=== PATIENT | female | born 1985 | race Caucasian/White ===

== ENCOUNTER 2021-09-05 17:34 | Emergency (ER) | payer BC ==
--- NOTE | 2021-09-05 19:33 | EDM.PDOC ---
ED HPI GENERAL MEDICAL PROBLEM - General Chief Complaint: Lower Extremity Injury/Pain Stated Complaint: TOE INJURY Time Seen by Provider: 09/05/21 18:46 Source of Information: Reports: Patient History Limitations: Reports: No Limitations - History of Present Illness INITIAL COMMENTS - FREE TEXT/NARRATIVE: Patient is a 36-year-old female who injured her right second toe getting out of the bathtub earlier this morning. Patient has been having pain with swelling and ecchymosis of the toe since. She denies any other injuries has not previously injured this foot has no other complaints. She has taken nothing for current symptoms and feels she needs to walk on her heel. Onset: Today Location: Reports: Lower Extremity, Right Quality: Reports: Ache, Throbbing Severity: Moderate Improves with: Reports: Rest Context: Reports: Trauma Associated Symptoms: Reports: No Other Symptoms right foot Pain Score (Numeric/FACES): 5 - Related Data Allergies Allergy/AdvReac Type Severity Reaction Status Date / Time acetaminophen [From Vicodin] Allergy Anaphylactic Verified 09/05/21 18:22 Shock hydrocodone [From Vicodin] Allergy Anaphylactic Verified 09/05/21 18:22 Shock Home Meds: Home Meds Multivit 45/Iron/Folate 6/Dha [Prenate Dha Softgel] 1 tab PO DAILY 09/05/21 [History] Past Medical History - Past Health History Medical/Surgical History: Denies Medical/Surgical History - Infectious Disease History Infectious Disease History: Reports: Novel Coronavirus Other Infectious Disease History: January 2020 Social & Family History - Tobacco Use Tobacco Use Status *Q: Never Tobacco User - Recreational Drug Use Recreational Drug Use: No Review of Systems - Review of Systems Review Of Systems: Comprehensive ROS is negative, except as noted in HPI. Musculoskeletal: Reports: Foot Pain Skin: Reports: Bruising ED EXAM, GENERAL - Physical Exam Exam: See Below Exam Limited By: No Limitations General Appearance: Alert, No Apparent Distress Head: Normocephalic Neck: Normal Inspection Respiratory/Chest: No Respiratory Distress GI/Abdominal: No Distention Extremities: Other (Ecchymosis with swelling on right second toe. The rest of the foot is nontender and normal appearing.) Neurological: Alert, Oriented Psychiatric: Normal Affect Skin Exam: Warm, Dry Course - Vital Signs Text/Narrative:: X-ray of patient's right foot shows no sign of fracture. She is refusing crutches at this point. She wants no pain medicines. She is asking for cast shoe which will attempt to give her. Why she will wear a heavy sock with an open toe sandal. Last Recorded V/S: Last Vital Signs Temp 98.1 F 09/05/21 18:20 Pulse 57 L 09/05/21 18:20 Resp 18 09/05/21 18:20 BP 136/85 09/05/21 18:20 Pulse Ox 99 09/05/21 18:20 - Orders/Labs/Meds Orders: Active Orders 24 hr Category Date Time Status Foot Comp Min 3V Rt [CR] Stat Exams 09/05/21 18:19 Taken Departure - Departure Time of Disposition: 19:35 Disposition: Home, Self-Care 01 Condition: Good Clinical Impression: Contusion of toe of right foot - Discharge Information Instructions: Foot Contusion, [id number] Referrals: PCP,None [Primary Care Provider] - Additional Instructions: Elevation ice while swollen. Ibuprofen and Tylenol as needed. Follow-up with PCP or Ortho if not improving in 5 to 7 days. Return to ER if worse. Sepsis Event Note (ED) - Evaluation Sepsis Screening Result: No Definite Risk - Focused Exam Vital Signs: Vital Signs Temp Pulse Resp BP Pulse Ox 09/05/21 18:20 98.1 F 57 L 18 136/85 99 - My Orders Last 24 Hours: My Active Orders 09/05/21 18:19 Foot Comp Min 3V Rt [CR] Stat - Assessment/Plan Last 24 Hours: My Active Orders 09/05/21 18:19 Foot Comp Min 3V Rt [CR] Stat
--- NOTE | 2021-09-06 06:42 | CR ---
Right foot: 4 views of the right foot were obtained. Comparison: No prior foot exam is available. Joint spaces are preserved. No fracture, dislocation or other bony abnormality is appreciated. Impression: 1. Nothing acute is identified on right foot exam. Diagnostic code #1
== END 2021-09-05 19:45 | disposition home or self-care (01) ==
LOC: JD.ED 17:34
DX: S90.121A Contusion of right lesser toe(s) without damage to nail, initial encounter (principal); Z88.8 Allergy status to other drugs, medicaments and biological substances; Z88.5 Allergy status to narcotic agent; W22.09XA Striking against other stationary object, initial encounter; Y92.002 Bathroom of unspecified non-institutional (private) residence as the place of occurrence of the external cause
CPT/HCPCS: 73630-26-RT; 73630-RT; 99283-25

== ENCOUNTER 2025-02-02 15:01 | Emergency (ER) | payer BC ==
[2025-02-02] MEDS ORDERED: Sodium Chloride 0.9% 10 ML Syringe FLUSH PRN (15:19)
[2025-02-02] MEDS: Aspirin 81 MG Tab.Chew PO ONE (15:30)
[2025-02-02 15:47] LABS: BASOPHILS ABSOLUTE AUTO 0.1 K/mm3 (0.0-0.2); EOSINOPHILS ABSOLUTE AUTO 0.9 K/mm3 (0.0-0.4); HEMATOCRIT 40.5 % (37.0-47.0); HEMOGLOBIN 12.8 gm/dl (12.0-16.0); IMMATURE GRAN ABSOLUTE AUTO 0.04 K/mm3 (0.00-0.05); IMMATURE GRAN PERCENT AUTO 0.4 % (0.0-0.4); LYMPHOCYTES ABSOLUTE AUTO 1.9 K/mm3 (1.0-4.8); LYMPHOCYTES PERCENT AUTO 19.2 % (24.0-44.0); MEAN CORPUSCULAR HEMOGLOBIN 29.3 pg (28.0-32.0); MEAN CORPUSCULAR HGB CONC 31.6 g/dl (32.0-36.0); MEAN CORPUSCULAR VOLUME 92.7 fl (83.0-99.0); MEAN PLATELET VOLUME 9.9 fl (9.4-12.3); MONOCYTES ABSOLUTE AUTO 0.9 K/mm3 (0.0-0.8); MONOCYTES PERCENT AUTO 8.5 % (0.0-8.0); NEUTROPHILS ABSOLUTE AUTO 6.2 K/mm3 (1.8-7.7); NEUTROPHILS PERCENT AUTO 61.9 % (41.0-71.0); PLATELET COUNT,PLT 223 K/mm3 (150-400); RED BLOOD CELL COUNT 4.37 M/mm3 (4.10-5.30); WHITE BLOOD CELL COUNT,WBC 9.95 K/mm3 (3.9-11.3)
[2025-02-02 16:11] LABS: A/G RATIO 0.9 (1-2); ALANINE AMINOTRANSFERASE,ALT 19 U/L (14-59); ALBUMIN 3.4 g/dl (3.4-5.0); ALKALINE PHOSPHATASE 44 U/L (46-116); ANION GAP 7.1 (5-15); ASPARTATE AMNIOTRANSFERASE,AST 11 U/L (15-37); BILIRUBIN TOTAL 0.4 mg/dL (0.2-1.0); BLOOD UREA NITROGEN,BUN 24 mg/dL (7-18); CALCIUM 8.8 mg/dL (8.5-10.1); CARBON DIOXIDE,CO2 31 mEq/L (21-32); CHLORIDE,CL 105 mEq/L (98-107); CREATININE 0.8 mg/dL (0.55-1.02); EST CRCL DRUG DOSING (CG) 89.99 mL/min; ESTIMATED GFR 95 mL/min (>60); GLUCOSE RANDOM 107 mg/dL (70-99); MAGNESIUM 1.8 mg/dL (1.8-2.4); POTASSIUM,K 5.1 mEq/L (3.5-5.1); PROTEIN TOTAL,TP 7.3 g/dl (6.4-8.2); SODIUM,NA 138 mEq/L (136-145)
[2025-02-02 16:12] LABS: TROPONIN I HIGH SENSITIVITY < 4 pg/mL (<=51)
== END 2025-02-02 17:28 | disposition home or self-care (01) ==
LOC: JD.ED 15:01
DX: R09.1 Pleurisy (principal); Z88.8 Allergy status to other drugs, medicaments and biological substances; Z79.899 Other long term (current) drug therapy; Z86.16 Personal history of COVID-19; Z87.891 Personal history of nicotine dependence
CPT/HCPCS: 36415; 71045; 80053; 83735; 84484; 85025; 85379; 93005; 99285; A9270